=== PATIENT | female | born 1945 | race Caucasian/White ===

== ENCOUNTER 2016-09-13 05:41 | Inpatient (IN) | payer MEDICARE ==
[~2016-09-13 05:41] MED LIST: ADVAIR INH; ALIGN4 MG PO; ALLEGRA ALLERG180 MG PO; ATROVENT INHALE14 GM INH; AZITHROMYCIN250 MG PO; BENADRYL25 MG PO; CALCIUM500 MG PO; CEFDINIR300 MG PO; CERTAGEN1 EACH PO; COLACE100 MG PO; FEOSOL325 MG PO; FLONASE ALLER15.8 ML; FLORASTOR250 MG PO; FOSAMAX70 MG PO; HCTZ25 MG PO; IMITREX50 MG PO; K-DUR20 MEQ PO; LEVAQUIN750 MG PO; MUCOMYST NEB; OXY-IR 5MG5 MG PO; PREDNISONE 20MG20 MG PO; PRINIVIL10 MG PO; SINGULAIR10 MG PO; THEOPHYLLINE 3300 MG PO; VENTOLIN (2.5 MG/3 M NEB; VITAMIN D31000 UNI1 PO; XARELTO10 MG PO; ZOCOR10 MG PO; [UNRECOGNIZED DRUG - OTHER] INH; [UNRECOGNIZED DRUG - OTHER] PO; [UNRECOGNIZED DRUG - OTHER] PO
[2016-09-13 07:50] LABS: BASOPHIL 0.2 % (0-2); EOSINOPHIL 0.7 % (0-7); HGB 16.4 g/dl (12.5-16.0); LYMPHOCYTE 7.2 % (15-48); MCH 30.9 pg (25.0-31.0); MCHC 34.2 g/dL (32.0-36.0); MCV 90.4 fL (78.0-100.0); MONOCYTE 9.1 % (0-12); NEUTROPHIL 82.8 % (41-80); PLT 221 K/uL (150-400); RBC 5.31 M/uL (4.20-5.40); RDW 14.1 % (11.5-14.0); WBC 12.1 K/uL (4.0-10.5)
[2016-09-13 08:01] LABS: ALBUMIN 4.2 g/dL (3.4-4.8); BILIRUBIN - TOTAL 0.7 mg/dL (0.1-1.0); CREATININE 0.8 mg/dL (0.5-1.0); GLOBULIN (CALCULATION) 2.9 g/dL (2.2-4.2); POTASSIUM 3.3 mmol/L (3.5-5.1); TOTAL PROTEIN 7.1 g/dL (6.4-8.3)
[2016-09-13 19:21] LABS: LACTIC ACID 1.4 mmol/L (0.5-2.2)
[2016-09-13 19:22] LABS: ALBUMIN 3.7 g/dL (3.4-4.8); BILIRUBIN - TOTAL 0.7 mg/dL (0.1-1.0); CREATININE 0.7 mg/dL (0.5-1.0); GLOBULIN (CALCULATION) 2.6 g/dL (2.2-4.2); POTASSIUM 3.3 mmol/L (3.5-5.1); TOTAL PROTEIN 6.3 g/dL (6.4-8.3)
[2016-09-13 19:24] LABS: BASOPHIL 0.1 % (0-2); EOSINOPHIL 0 % (0-7); HCT 46.8 % (37.0-47.0); HGB 16.2 g/dl (12.5-16.0); LYMPHOCYTE 4.9 % (15-48); MCHC 34.6 g/dL (32.0-36.0); MCV 89.7 fL (78.0-100.0); MONOCYTE 12.1 % (0-12); MPV 9.9 fL (6.0-9.5); NEUTROPHIL 82.9 % (41-80); PLT 232 K/uL (150-400); RBC 5.22 M/uL (4.20-5.40); RDW 14.6 % (11.5-14.0)
[2016-09-13 19:25] LABS: WBC 15.2 K/uL (4.0-10.5)
[2016-09-14 05:32] LABS: BASOPHIL 0.2 % (0-2); EOSINOPHIL 0.2 % (0-7); HCT 41.3 % (37.0-47.0); HGB 14.2 g/dl (12.5-16.0); LYMPHOCYTE 11.6 % (15-48); MCH 31.1 pg (25.0-31.0); MCHC 34.4 g/dL (32.0-36.0); MCV 90.4 fL (78.0-100.0); MONOCYTE 14.5 % (0-12); MPV 9.8 fL (6.0-9.5); NEUTROPHIL 73.5 % (41-80); PLT 192 K/uL (150-400); RBC 4.57 M/uL (4.20-5.40); RDW 14.4 % (11.5-14.0); WBC 11.9 K/uL (4.0-10.5)
[2016-09-14 05:56] LABS: CREATININE 0.6 mg/dL (0.5-1.0); POTASSIUM 2.7 mmol/L (3.5-5.1)
[2016-09-15 05:20] LABS: HCT 39.3 % (37.0-47.0); HGB 13.1 g/dl (12.5-16.0); MCH 30.8 pg (25.0-31.0); MCHC 33.3 g/dL (32.0-36.0); MCV 92.3 fL (78.0-100.0); RBC 4.26 M/uL (4.20-5.40); RDW 14.4 % (11.5-14.0); WBC 6.9 K/uL (4.0-10.5)
[2016-09-15 05:43] LABS: CREATININE 0.8 mg/dL (0.5-1.0); POTASSIUM 3.6 mmol/L (3.5-5.1)
[2016-09-16 05:23] LABS: HCT 38.9 % (37.0-47.0); MCH 30.8 pg (25.0-31.0); MCHC 33.4 g/dL (32.0-36.0); MCV 92.2 fL (78.0-100.0); MPV 10.2 fL (6.0-9.5); RBC 4.22 M/uL (4.20-5.40); RDW 14.5 % (11.5-14.0); WBC 5.8 K/uL (4.0-10.5)
[2016-09-16 05:51] LABS: BILIRUBIN - TOTAL 0.2 mg/dL (0.1-1.0); CREATININE 0.6 mg/dL (0.5-1.0); GLOBULIN (CALCULATION) 2.2 g/dL (2.2-4.2); POTASSIUM 4.3 mmol/L (3.5-5.1); TOTAL PROTEIN 5.2 g/dL (6.4-8.3)
[2016-09-17 05:34] LABS: CREATININE 0.6 mg/dL (0.5-1.0); POTASSIUM 4.1 mmol/L (3.5-5.1)
== END 2016-09-17 12:06 | disposition home or self-care (01) | DRG 392 ==
LOC: FER 05:41 → FMS 23:41
PROVIDERS: Emergency Medicine Emergency Medical Services; Hospitalist; Internal Medicine; Internal Medicine Cardiovascular Disease; ADMIT Internal Medicine
DX: K52.9 Noninfective gastroenteritis and colitis, unspecified (principal); K51.00 Ulcerative (chronic) pancolitis without complications; I10 Essential (primary) hypertension; J45.909 Unspecified asthma, uncomplicated; E78.5 Hyperlipidemia, unspecified; K21.9 Gastro-esophageal reflux disease without esophagitis; M19.90 Unspecified osteoarthritis, unspecified site; Z87.19 Personal history of other diseases of the digestive system; Z88.6 Allergy status to analgesic agent; Z88.8 Allergy status to other drugs, medicaments and biological substances; Z80.3 Family history of malignant neoplasm of breast; E78.00 Pure hypercholesterolemia, unspecified; Z85.828 Personal history of other malignant neoplasm of skin; Z96.651 Presence of right artificial knee joint; E87.6 Hypokalemia; Z96.641 Presence of right artificial hip joint
CPT/HCPCS: 36415; 74000; 80048; 80053; 82150; 83605; 83735; 85025; 87040; 87045; 87046; 87205; 87328; 87337; 87493; 93005; 94010; 94640; 99284; J3370; Q9967

== ENCOUNTER 2016-10-15 22:31 | Emergency (ER) | payer MEDICARE ==
[2016-10-16 03:41] LABS: BASOPHIL 0.2 % (0-2); EOSINOPHIL 0.5 % (0-7); HCT 43.8 % (37.0-47.0); LYMPHOCYTE 12.9 % (15-48); MCH 30.7 pg (25.0-31.0); MCHC 34.2 g/dL (32.0-36.0); MCV 89.6 fL (78.0-100.0); MONOCYTE 10.2 % (0-12); MPV 9.4 fL (6.0-9.5); NEUTROPHIL 76.2 % (41-80); PLT 214 K/uL (150-400); RBC 4.89 M/uL (4.20-5.40); RDW 13.9 % (11.5-14.0)
[2016-10-16 04:02] LABS: BILIRUBIN - TOTAL 0.7 mg/dL (0.1-1.0); CREATININE 0.8 mg/dL (0.5-1.0); GLOBULIN (CALCULATION) 2.4 g/dL (2.2-4.2); POTASSIUM 2.9 mmol/L (3.5-5.1); TOTAL PROTEIN 6.4 g/dL (6.4-8.3)
== END 2016-10-16 04:25 | disposition home or self-care (01) ==
LOC: FER 22:31
PROVIDERS: Emergency Medicine
DX: A04.7 Enterocolitis due to Clostridium difficile (principal); E87.6 Hypokalemia; I10 Essential (primary) hypertension
CPT/HCPCS: 36415; 74022; 80053; 85025; 87493; 99284

== ENCOUNTER 2020-09-17 14:46 | Emergency (ER) | payer MEDICARE ==
[~2020-09-17 14:46] MED LIST changes: +ANTIVERT25 MG PO; +CARDIZEM CD180 M1 PO; +CHARCOCAPS260 MG PO; +COREG 3.125M3.125 MG PO; +COZAAR50 MG PO; +DILTIAZEM ER120 M1 PO; +DUONEB 2.5-0.5M1 AMP NEB; +FLEXERIL5 MG PO; +KAPSPARGO SPRI100 MG PO; +LEXAPRO 10MG TA10 MG PO; +LOPRESSOR50 MG PO; +MEDROL 4MG DOSEP4 MG PO; +NORVASC5 MG PO; +OXYGEN; +PHENERGAN25 M1 PO; +PREDNISONE20 MG PO; +PREDNISONE5 MG PO; +PRILOSEC20 MG PO; +PULMICORT0.5 MG/2 M NEB; +SODIUM CHLORIDE INH; +SYNTHROID25 MCG PO; +TESSALON PERLE100 MG PO; +TUSSIONEX PENN115 ML PO
[2020-09-17 16:02] LABS: ALBUMIN 3.4 g/dL (3.4-5.0); BILIRUBIN - TOTAL 0.5 mg/dL (0.2-1.0); BUN/CREAT RATIO (CALC) 15.9 RATIO; CREATININE 0.82 mg/dL (0.51-0.95); GLOBULIN (CALCULATION) 3.7 g/dL; POTASSIUM 3.6 mmol/L (3.5-5.1); TOTAL PROTEIN 7.1 g/dL (6.4-8.2)
[2020-09-17 16:09] LABS: BASOPHIL 0.8 % (0-2); HGB 14.9 g/dl (12.5-16.0); LYMPHOCYTE 18.9 % (15-48); MCH 30.7 pg (25.0-31.0); MCHC 33.1 g/dL (32.0-36.0); MCV 92.6 fL (78.0-100.0); MONOCYTE 10.1 % (0-12); MPV 10.4 fL (6.0-9.5); NEUTROPHIL 61.8 % (41-80); NRBC 0; PLT 286 K/uL (150-400); RBC 4.86 M/uL (4.20-5.40); RDW 12.8 % (11.5-14.0); WBC 9.5 K/uL (4.0-10.5)
[2020-09-17 16:11] LABS: PRO-BNP 167 pg/mL (<125)
[2020-09-17] MEDS ORDERED: PREDNISONE 20MG20 MG PO (19:00)
== END 2020-09-17 19:14 | disposition home or self-care (01) ==
LOC: FER 14:46
PROVIDERS: Emergency Medicine
DX: J45.901 Unspecified asthma with (acute) exacerbation (principal); Z88.6 Allergy status to analgesic agent; Z88.5 Allergy status to narcotic agent; Z88.8 Allergy status to other drugs, medicaments and biological substances
CPT/HCPCS: 36415; 71045; 80053; 83880; 84484; 85025; 93005; 94664; J2930

== ENCOUNTER 2020-10-05 12:44 | Emergency (ER) | payer MEDICARE ==
[2020-10-05 13:44] LABS: BASOPHIL 0.4 % (0-2); EOSINOPHIL 3.6 % (0-7); HCT 47.8 % (37.0-47.0); LYMPHOCYTE 15.1 % (15-48); MCH 30.8 pg (25.0-31.0); MCHC 33.5 g/dL (32.0-36.0); MCV 91.9 fL (78.0-100.0); MONOCYTE 10.3 % (0-12); MPV 10.1 fL (6.0-9.5); NEUTROPHIL 70.1 % (41-80); NRBC 0; PLT 210 K/uL (150-400); RDW 13.6 % (11.5-14.0); WBC 11.3 K/uL (4.0-10.5)
[2020-10-05 13:54] LABS: INR 0.94 (0.9-1.2); PROTHROMBIN TIME 11.9 SECONDS (11.4-13.6); PTT 28.4 SECONDS (22.2-34.7)
[2020-10-05 14:04] LABS: ALBUMIN 3.4 g/dL (3.4-5.0); BILIRUBIN - TOTAL 0.6 mg/dL (0.2-1.0); BUN/CREAT RATIO (CALC) 18.8 RATIO; CREATININE 0.8 mg/dL (0.51-0.95); GLOBULIN (CALCULATION) 3.2 g/dL; MAGNESIUM 1.9 mg/dL (1.8-2.4); POTASSIUM 3.8 mmol/L (3.5-5.1); TOTAL PROTEIN 6.6 g/dL (6.4-8.2)
[2020-10-05 14:26] LABS: LACTIC ACID 2.6 mmol/L (0.4-1.9)
[2020-10-05] MEDS ORDERED: PREDNISONE20 MG PO (18:24)
== END 2020-10-05 19:05 | disposition home or self-care (01) ==
LOC: FER 12:44
PROVIDERS: Emergency Medicine
DX: J45.901 Unspecified asthma with (acute) exacerbation (principal); I10 Essential (primary) hypertension; Z20.822 Contact with and (suspected) exposure to COVID-19; Z88.1 Allergy status to other antibiotic agents; Z88.6 Allergy status to analgesic agent; Z88.5 Allergy status to narcotic agent; Z88.8 Allergy status to other drugs, medicaments and biological substances
CPT/HCPCS: 36415; 36600; 71045; 80053; 82803; 83605; 83735; 83880; 84145; 85025; 85610; 85730; 87040; 93005; 94640; 94664; J2930; U0002

== ENCOUNTER 2020-10-07 12:22 | Day surgery (SDCO) | payer MEDICARE ==
[~2020-10-07] VITALS: Ht 154.9 cm; Wt 87.3 kg
[2020-10-07 13:36] LABS: BASOPHIL 0.2 % (0-2); EOSINOPHIL 0 % (0-7); HGB 15.9 g/dl (12.5-16.0); LYMPHOCYTE 6.9 % (15-48); MCH 30.7 pg (25.0-31.0); MCHC 33.1 g/dL (32.0-36.0); MCV 92.7 fL (78.0-100.0); MONOCYTE 3.6 % (0-12); MPV 10.2 fL (6.0-9.5); NEUTROPHIL 88.6 % (41-80); NRBC 0; PLT 221 K/uL (150-400); RBC 5.18 M/uL (4.20-5.40); RDW 13.8 % (11.5-14.0)
[2020-10-07 13:55] LABS: ALBUMIN 3.4 g/dL (3.4-5.0); BILIRUBIN - TOTAL 0.4 mg/dL (0.2-1.0); BUN/CREAT RATIO (CALC) 25.6 RATIO; CREATININE 0.78 mg/dL (0.51-0.95); GLOBULIN (CALCULATION) 3.7 g/dL; POTASSIUM 4.2 mmol/L (3.5-5.1); TOTAL PROTEIN 7.1 g/dL (6.4-8.2)
[2020-10-07] MEDS ORDERED: SYMBICORT 80-10.2 GM INH (17:10)
[2020-10-07] MEDS ORDERED: PREDNISONE 20MG20 MG PO (17:19)
[2020-10-07] MEDS ORDERED: LEVOTHYROXINE75 MC1 PO (17:21)
[2020-10-07] MEDS ORDERED: COZAAR100 MG PO (17:21)
[2020-10-08 04:12] LABS: BASOPHIL 0.1 % (0-2); EOSINOPHIL 0 % (0-7); HCT 43.9 % (37.0-47.0); HGB 14.8 g/dl (12.5-16.0); LYMPHOCYTE 7.3 % (15-48); MCH 31.1 pg (25.0-31.0); MCHC 33.7 g/dL (32.0-36.0); MCV 92.2 fL (78.0-100.0); MONOCYTE 2.1 % (0-12); NEUTROPHIL 89.8 % (41-80); NRBC 0; PLT 187 K/uL (150-400); RBC 4.76 M/uL (4.20-5.40); RDW 13.7 % (11.5-14.0); WBC 10.4 K/uL (4.0-10.5)
[2020-10-08 04:38] LABS: BUN/CREAT RATIO (CALC) 27.3 RATIO; CREATININE 0.77 mg/dL (0.51-0.95); POTASSIUM 3.6 mmol/L (3.5-5.1)
--- NOTE | 2020-10-08 09:46 | NUR ---
10/08/20 Please consider discharge or full admit. Thank you.
[2020-10-09 08:08] LABS: IMMUNOGLOBULIN A, QN, SERUM 146 mg/dL (64-422); IMMUNOGLOBULIN G, QN, SERUM 454 mg/dL (586-1602); IMMUNOGLOBULIN M, QN, SERUM 64 mg/dL (26-217)
[2020-10-10 05:47] LABS: BASOPHIL 0.3 % (0-2); EOSINOPHIL 0.1 % (0-7); HCT 44.5 % (37.0-47.0); HGB 14.8 g/dl (12.5-16.0); LYMPHOCYTE 19.4 % (15-48); MCH 30.7 pg (25.0-31.0); MCHC 33.3 g/dL (32.0-36.0); MCV 92.3 fL (78.0-100.0); MONOCYTE 10.4 % (0-12); NEUTROPHIL 68.8 % (41-80); NRBC 0; PLT 175 K/uL (150-400); RBC 4.82 M/uL (4.20-5.40); RDW 14.2 % (11.5-14.0); WBC 11.9 K/uL (4.0-10.5)
[2020-10-10 05:57] LABS: CREATININE 0.87 mg/dL (0.51-0.95); POTASSIUM 3.7 mmol/L (3.5-5.1)
[2020-10-10] MEDS ORDERED: PREDNISONE 20MG20 MG PO (09:59)
--- NOTE | 2020-10-10 10:00 | NUR ---
10/10/20 Ms. Faustin and her spouse share a home together. She has a C-PAP, S. chair, rollator and rw. Ms. Faustin is able to manage the household with the assitance of her spouse and a senior sales consultant every 2 weeks. No discharge planning needs are anticipated.
[2020-10-13 05:10] LABS: D001-IGE D PTERONYSSINUS <0.10 kU/L (Class 0); D002-IGE D FARINAE <0.10 kU/L (Class 0); E001-IGE CAT DANDER <0.10 kU/L (Class 0); E005-IGE DOG DANDER <0.10 kU/L (Class 0); E072-IGE MOUSE URINE <0.10 kU/L (Class 0); G002-IGE BERMUDA GRASS <0.10 kU/L (Class 0); G006-IGE TIMOTHY GRASS <0.10 kU/L (Class 0); IMMUNOGLOBULIN E, TOTAL 77 IU/mL (6-495); M001-IGE PENICILLIUM CHRYSOGEN <0.10 kU/L (Class 0); M002-IGE CLADOSPORIUM HERBARUM <0.10 kU/L (Class 0); M003-IGE ASPERGILLUS FUMIGATUS 0.18 kU/L (Class 0/I); M006-IGE ALTERNARIA ALTERNATA <0.10 kU/L (Class 0); T001-IGE MAPLE/BOX ELDER <0.10 kU/L (Class 0); T003-IGE COMMON SILVER BIRCH <0.10 kU/L (Class 0); T006-IGE CEDAR, MOUNTAIN <0.10 kU/L (Class 0); T007-IGE OAK, WHITE <0.10 kU/L (Class 0); T010-IGE WALNUT <0.10 kU/L (Class 0); T011-IGE MAPLE LEAF SYCAMORE <0.10 kU/L (Class 0); T014-IGE COTTONWOOD <0.10 kU/L (Class 0); T015-IGE ASH, WHITE <0.10 kU/L (Class 0); T070-IGE WHITE MULBERRY <0.10 kU/L (Class 0); W001-IGE RAGWEED, SHORT <0.10 kU/L (Class 0); W018-IGE SHEEP SORREL <0.10 kU/L (Class 0)
== END 2020-10-10 10:30 | disposition home or self-care (01) ==
LOC: FER 12:22 → FMS 14:54
PROVIDERS: Emergency Medicine; ADMIT Allergy & Immunology Allergy
DX: J45.51 Severe persistent asthma with (acute) exacerbation (principal); I10 Essential (primary) hypertension; E78.5 Hyperlipidemia, unspecified; G43.909 Migraine, unspecified, not intractable, without status migrainosus; E03.9 Hypothyroidism, unspecified; M81.0 Age-related osteoporosis without current pathological fracture; I70.0 Atherosclerosis of aorta; K21.9 Gastro-esophageal reflux disease without esophagitis; J98.11 Atelectasis; D80.1 Nonfamilial hypogammaglobulinemia; Z79.899 Other long term (current) drug therapy; Z88.5 Allergy status to narcotic agent; Z88.6 Allergy status to analgesic agent; Z88.8 Allergy status to other drugs, medicaments and biological substances; Z20.822 Contact with and (suspected) exposure to COVID-19
CPT/HCPCS: 36415; 36600; 71046; 71250; 80048; 80053; 82784; 82803; 83605; 83880; 84484; 85025; 86001; 93005; 94010; 94640; 94664; 94667; 94668; 94760; A4216; G0378; J1650; J2920; J3475; J7050; J7120; J7512; U0002

== ENCOUNTER 2020-11-04 20:01 | Emergency (ER) | payer MEDICARE ==
[~2020-11-04 20:01] MED LIST changes: +COZAAR100 MG PO; +LEVOTHYROXINE75 MC1 PO; +SYMBICORT 80-10.2 GM INH
[2020-11-04 20:59] LABS: BASOPHIL 0.6 % (0-2); EOSINOPHIL 2.1 % (0-7); HCT 43.5 % (37.0-47.0); HGB 14.5 g/dl (12.5-16.0); LYMPHOCYTE 25.7 % (15-48); MCHC 33.3 g/dL (32.0-36.0); MCV 93.1 fL (78.0-100.0); MONOCYTE 10.3 % (0-12); MPV 9.9 fL (6.0-9.5); NEUTROPHIL 60.5 % (41-80); NRBC 0; PLT 235 K/uL (150-400); RBC 4.67 M/uL (4.20-5.40); RDW 14.6 % (11.5-14.0); WBC 9.5 K/uL (4.0-10.5)
[2020-11-04 21:07] LABS: BUN/CREAT RATIO (CALC) 22.5 RATIO; CREATININE 0.8 mg/dL (0.51-0.95); POTASSIUM 3.7 mmol/L (3.5-5.1)
[2020-11-04] MEDS ORDERED: PREDNISONE 20MG20 MG PO (21:56)
== END 2020-11-04 22:05 | disposition home or self-care (01) ==
LOC: FER 20:01
PROVIDERS: Emergency Medicine
DX: J45.909 Unspecified asthma, uncomplicated (principal); I10 Essential (primary) hypertension; Z88.6 Allergy status to analgesic agent; Z88.5 Allergy status to narcotic agent; Z88.8 Allergy status to other drugs, medicaments and biological substances; Z79.899 Other long term (current) drug therapy
CPT/HCPCS: 36415; 71045; 80048; 85025; 93005; 94640; 94664; 94760; J2930

== ENCOUNTER 2020-12-13 13:24 | Emergency (ER) | payer MEDICARE ==
[2020-12-13] MEDS ORDERED: PREDNISONE 20MG20 MG PO (16:23)
== END 2020-12-13 17:19 | disposition home or self-care (01) ==
LOC: FER 13:24
DX: J45.901 Unspecified asthma with (acute) exacerbation (principal); J98.11 Atelectasis; I10 Essential (primary) hypertension
CPT/HCPCS: 71045

== ENCOUNTER 2021-04-09 07:33 | Inpatient (IN) | payer MEDICARE ==
[~2021-04-09] VITALS: Ht 154.9 cm; Wt 90.8 kg
[2021-04-09 08:13] LABS: BASOPHIL 0.6 % (0-2); EOSINOPHIL 0.8 % (0-7); HCT 48.8 % (37.0-47.0); LYMPHOCYTE 13.5 % (15-48); MCH 30.7 pg (25.0-31.0); MCHC 32.8 g/dL (32.0-36.0); MCV 93.5 fL (78.0-100.0); MPV 9.9 fL (6.0-9.5); NEUTROPHIL 71.4 % (41-80); NRBC 0; PLT 267 K/uL (150-400); RBC 5.22 M/uL (4.20-5.40); RDW 13.4 % (11.5-14.0)
[2021-04-09 08:27] LABS: CORONAVIRUS 2019 SARS-COV-2 NEGATIVE (NEGATIVE); INFLUENZA A NAA NEGATIVE (NEGATIVE)
[2021-04-09 08:34] LABS: ALBUMIN 3.5 g/dL (3.4-5.0); BILIRUBIN - TOTAL 0.8 mg/dL (0.2-1.0); BUN/CREAT RATIO (CALC) 22.1 RATIO; CREATININE 0.86 mg/dL (0.51-0.95); GLOBULIN (CALCULATION) 3.4 g/dL; POTASSIUM 3.3 mmol/L (3.5-5.1); TOTAL PROTEIN 6.9 g/dL (6.4-8.2)
[2021-04-09 08:38] LABS: PRO-BNP 114 pg/mL (<450)
[2021-04-09 08:43] LABS: C-REACTIVE PROTEIN 6.6 mg/dL (<=0.90)
[2021-04-09] MEDS ORDERED: SYMBICORT 80-10.2 GM INH (11:35)
[2021-04-09] MEDS ORDERED: TESSALON PERLE100 MG PO ×2 (13:08→13:09)
[2021-04-09] MEDS ORDERED: VITAMIN D325 MC2 PO (13:11)
[2021-04-09] MEDS ORDERED: DUPIXENT P200 MG/1.1 IJ (13:13)
[2021-04-09] MEDS ORDERED: LASIX20 MG PO (13:14)
[2021-04-09] MEDS ORDERED: IMODIUM2 MG PO (13:17)
[2021-04-09] MEDS ORDERED: ANTIVERT25 MG PO ×2 (13:19)
[2021-04-09] MEDS ORDERED: mycostatin TOP (13:22)
[2021-04-09] MEDS ORDERED: PRILOSEC20 MG PO (13:23)
[2021-04-09] MEDS ORDERED: SPIRIVA18 MCG INH (13:24)
[2021-04-11 06:13] LABS: BASOPHIL 0.3 % (0-2); EOSINOPHIL 0.1 % (0-7); HCT 44.2 % (37.0-47.0); HGB 14.6 g/dl (12.5-16.0); LYMPHOCYTE 19.7 % (15-48); MCH 30.5 pg (25.0-31.0); MCV 92.5 fL (78.0-100.0); MPV 9.9 fL (6.0-9.5); NEUTROPHIL 68.6 % (41-80); NRBC 0; PLT 294 K/uL (150-400); RBC 4.78 M/uL (4.20-5.40); RDW 13.3 % (11.5-14.0); WBC 14.8 K/uL (4.0-10.5)
[2021-04-11 06:49] LABS: BUN/CREAT RATIO (CALC) 20.8 RATIO; CREATININE 0.72 mg/dL (0.51-0.95); POTASSIUM 3.7 mmol/L (3.5-5.1)
--- NOTE | 2021-04-11 15:57 | NUR ---
04/11/21 Ms. Faustin lives at home with her spouse. She has a rollator and s. chair. She is modified independent in the home and community. A fish housekeeper comes to the home evry other week. - Ms. Faustin chose [facility] if 02 is needed at discharge. However, she prefers not to have 02 and request her permission prior to a referral being made to [facility]. A report was given to Dr. Martin.
[2021-04-12 06:45] LABS: BASOPHIL 0.5 % (0-2); EOSINOPHIL 0.1 % (0-7); HCT 43.9 % (37.0-47.0); HGB 14.4 g/dl (12.5-16.0); LYMPHOCYTE 23.2 % (15-48); MCH 30.4 pg (25.0-31.0); MCHC 32.8 g/dL (32.0-36.0); MCV 92.8 fL (78.0-100.0); MONOCYTE 10.1 % (0-12); MPV 9.8 fL (6.0-9.5); NEUTROPHIL 63.7 % (41-80); NRBC 0; PLT 294 K/uL (150-400); RBC 4.73 M/uL (4.20-5.40); RDW 13.3 % (11.5-14.0); WBC 12.4 K/uL (4.0-10.5)
[2021-04-12 07:01] LABS: ALBUMIN 2.6 g/dL (3.4-5.0); BILIRUBIN - TOTAL 0.3 mg/dL (0.2-1.0); BUN/CREAT RATIO (CALC) 23.9 RATIO; CREATININE 0.71 mg/dL (0.51-0.95); GLOBULIN (CALCULATION) 3.9 g/dL; POTASSIUM 3.6 mmol/L (3.5-5.1); TOTAL PROTEIN 6.5 g/dL (6.4-8.2)
[2021-04-13 06:24] LABS: BASOPHIL 0.5 % (0-2); EOSINOPHIL 0.2 % (0-7); HCT 43.5 % (37.0-47.0); MCH 29.9 pg (25.0-31.0); MCHC 32.2 g/dL (32.0-36.0); MCV 92.9 fL (78.0-100.0); MONOCYTE 9.8 % (0-12); MPV 9.7 fL (6.0-9.5); NEUTROPHIL 62.8 % (41-80); NRBC 0; PLT 266 K/uL (150-400); RBC 4.68 M/uL (4.20-5.40); RDW 13.3 % (11.5-14.0); WBC 11.6 K/uL (4.0-10.5)
[2021-04-13 07:07] LABS: ALBUMIN 2.6 g/dL (3.4-5.0); BILIRUBIN - TOTAL 0.2 mg/dL (0.2-1.0); CREATININE 0.84 mg/dL (0.51-0.95); GLOBULIN (CALCULATION) 3.4 g/dL; POTASSIUM 3.9 mmol/L (3.5-5.1)
[2021-04-14] MEDS ORDERED: ADVAIR 500-501 EACH INH (13:28)
[2021-04-15] MEDS ORDERED: BENTYL10 MG PO (05:24)
[2021-04-15] MEDS ORDERED: METRONIDAZOLE500 MG PO (05:24)
== END 2021-04-13 12:05 | disposition home or self-care (01) | DRG 871 ==
LOC: FER 07:33 → FMS 09:46
PROVIDERS: Emergency Medicine; Family Medicine; ADMIT Allergy & Immunology Allergy
PROC: 8E0ZXY6 Isolation (ICD-10-PCS; principal; 2021-04-12)
DX: A41.9 Sepsis, unspecified organism (principal); J96.01 Acute respiratory failure with hypoxia; J18.9 Pneumonia, unspecified organism; E87.2 Acidosis; J47.0 Bronchiectasis with acute lower respiratory infection; J45.51 Severe persistent asthma with (acute) exacerbation; R65.20 Severe sepsis without septic shock; Z20.822 Contact with and (suspected) exposure to COVID-19; E03.9 Hypothyroidism, unspecified; K52.9 Noninfective gastroenteritis and colitis, unspecified; I50.9 Heart failure, unspecified; I11.0 Hypertensive heart disease with heart failure; M81.0 Age-related osteoporosis without current pathological fracture; K21.9 Gastro-esophageal reflux disease without esophagitis; G43.909 Migraine, unspecified, not intractable, without status migrainosus; E78.5 Hyperlipidemia, unspecified; I87.2 Venous insufficiency (chronic) (peripheral); E66.9 Obesity, unspecified; Z96.651 Presence of right artificial knee joint; Z96.641 Presence of right artificial hip joint; Z98.41 Cataract extraction status, right eye; Z98.42 Cataract extraction status, left eye; Z98.890 Other specified postprocedural states; Z88.5 Allergy status to narcotic agent; Z88.6 Allergy status to analgesic agent; Z88.8 Allergy status to other drugs, medicaments and biological substances; Z79.51 Long term (current) use of inhaled steroids; Z79.890 Hormone replacement therapy; Z79.899 Other long term (current) drug therapy; Z87.01 Personal history of pneumonia (recurrent); Z68.37 Body mass index [BMI] 37.0-37.9, adult
CPT/HCPCS: 36415; 36600; 71045; 71275; 80048; 80053; 82728; 82803; 83605; 83615; 83735; 83880; 84145; 84484; 85025; 85379; 86140; 87040; 87449; 93005; 94640; 94668; 94760; A4216; J0456; J0696; J1650; J2543; J2930; J7030; J7050; J7512; Q9967; U0002

== ENCOUNTER 2021-08-15 16:08 | Emergency (ER) | payer MEDICARE ==
[~2021-08-15 16:08] MED LIST changes: +ADVAIR 500-501 EACH INH; +BENTYL10 MG PO; +DUPIXENT P200 MG/1.1 IJ; +IMODIUM2 MG PO; +LASIX20 MG PO; +METRONIDAZOLE500 MG PO; +SPIRIVA18 MCG INH; +VITAMIN D325 MC2 PO; +mycostatin TOP
[2021-08-15 17:51] LABS: BILIRUBIN NEGATIVE (NEGATIVE); BLOOD NEGATIVE Ery/uL (NEGATIVE); CLARITY CLEAR (CLEAR); GLUCOSE (U) NORMAL (NORMAL); LEUKOCYTES TRACE Leu/uL (NEGATIVE); NITRITE NEGATIVE (NEGATIVE); PROTEIN NEGATIVE (NEGATIVE); SPECIFIC GRAVITY 1.015 (1.001-1.030); UROBILINOGEN 0.2 mg/dL (0.2-1.0)
[2021-08-15 17:56] LABS: COLOR STRAW (YELLOW)
[2021-08-15 17:57] LABS: URINARY WBC RARE
[2021-08-15 17:58] LABS: BACTERIA TRACE; SQUAMOUS EPITHELIAL CELLS RARE
[2021-08-15] MEDS ORDERED: PREDNISONE 20MG20 MG PO (19:07)
== END 2021-08-15 20:22 | disposition home or self-care (01) ==
LOC: FER 16:08
PROVIDERS: Emergency Medicine
DX: M54.50 Low back pain, unspecified (principal); G89.29 Other chronic pain; I10 Essential (primary) hypertension; E66.9 Obesity, unspecified; Z88.6 Allergy status to analgesic agent; Z88.8 Allergy status to other drugs, medicaments and biological substances; Z91.048 Other nonmedicinal substance allergy status
CPT/HCPCS: 81001; 96372; J1170; J2550; J7512

== ENCOUNTER 2021-10-08 00:51 | Emergency (ER) | payer MEDICARE ==
[2021-10-08 03:42] LABS: BASOPHIL 0.7 % (0-2); EOSINOPHIL 0.7 % (0-7); HCT 48.7 % (37.0-47.0); HGB 15.9 g/dl (12.5-16.0); LYMPHOCYTE 14.9 % (15-48); MCH 31.1 pg (25.0-31.0); MCHC 32.6 g/dL (32.0-36.0); MCV 95.3 fL (78.0-100.0); MPV 9.9 fL (6.0-9.5); NEUTROPHIL 77.4 % (41-80); NRBC 0; PLT 213 K/uL (150-400); RBC 5.11 M/uL (4.20-5.40); RDW 13.8 % (11.5-14.0); WBC 8.8 K/uL (4.0-10.5)
[2021-10-08 04:02] LABS: ALBUMIN 3.6 g/dL (3.4-5.0); BILIRUBIN - TOTAL 0.5 mg/dL (0.2-1.0); BUN/CREAT RATIO (CALC) 23.2 RATIO; CREATININE 0.69 mg/dL (0.51-0.95); GLOBULIN (CALCULATION) 3.4 g/dL; POTASSIUM 3.7 mmol/L (3.5-5.1)
[2021-10-08] MEDS ORDERED: ZPAK PO (04:57)
[2021-10-08] MEDS ORDERED: MEDROL 4MG DOSEP4 MG PO (04:57)
== END 2021-10-08 05:52 | disposition home or self-care (01) ==
LOC: FER 00:51
PROVIDERS: Emergency Medicine
DX: J45.901 Unspecified asthma with (acute) exacerbation (principal); J18.9 Pneumonia, unspecified organism; I10 Essential (primary) hypertension; Z88.5 Allergy status to narcotic agent; Z88.6 Allergy status to analgesic agent; Z88.8 Allergy status to other drugs, medicaments and biological substances; Z20.822 Contact with and (suspected) exposure to COVID-19
CPT/HCPCS: 36415; 71045; 80053; 84484; 85025; 93005; 94640; J2930; U0002

== ENCOUNTER 2021-11-13 12:24 | Emergency (ER) | payer MEDICARE ==
[~2021-11-13 12:24] MED LIST changes: +ZPAK PO
[2021-11-13 14:01] LABS: BASOPHIL 1.2 % (0-2); EOSINOPHIL 0.9 % (0-7); HCT 47.1 % (37.0-47.0); HGB 15.6 g/dl (12.5-16.0); LYMPHOCYTE 19.9 % (15-48); MCH 31.6 pg (25.0-31.0); MCHC 33.1 g/dL (32.0-36.0); MCV 95.3 fL (78.0-100.0); MONOCYTE 9.8 % (0-12); MPV 9.5 fL (6.0-9.5); NEUTROPHIL 67.3 % (41-80); NRBC 0; PLT 333 K/uL (150-400); RBC 4.94 M/uL (4.20-5.40); RDW 13.4 % (11.5-14.0); WBC 10.2 K/uL (4.0-10.5)
[2021-11-13 14:02] LABS: BILIRUBIN NEGATIVE (NEGATIVE); BLOOD NEGATIVE Ery/uL (NEGATIVE); CLARITY CLEAR (CLEAR); COLOR YELLOW (YELLOW); GLUCOSE (U) NORMAL (NORMAL); LEUKOCYTES TRACE Leu/uL (NEGATIVE); NITRITE NEGATIVE (NEGATIVE); PROTEIN NEGATIVE (NEGATIVE); UROBILINOGEN 0.2 mg/dL (0.2-1.0)
[2021-11-13 14:08] LABS: INR 0.99 (0.9-1.2); PROTHROMBIN TIME 12.8 SECONDS (11.9-13.9)
[2021-11-13 14:10] LABS: D-DIMER 0.59 ug/mLFEU (0.00-0.41)
[2021-11-13 14:16] LABS: SQUAMOUS EPITHELIAL CELLS RARE; URINARY WBC RARE
[2021-11-13 14:28] LABS: ALBUMIN 3.5 g/dL (3.4-5.0); BILIRUBIN - TOTAL 0.6 mg/dL (0.2-1.0); BUN/CREAT RATIO (CALC) 20.5 RATIO; CREATININE 0.83 mg/dL (0.51-0.95); GLOBULIN (CALCULATION) 3.4 g/dL; POTASSIUM 3.5 mmol/L (3.5-5.1); TOTAL PROTEIN 6.9 g/dL (6.4-8.2)
[2021-11-13 14:45] LABS: CORONAVIRUS 2019 SARS-COV-2 NEGATIVE (NEGATIVE); INFLUENZA A NAA NEGATIVE (NEGATIVE)
[2021-11-13] MEDS ORDERED: ZPAK PO (15:25)
[2021-11-13] MEDS ORDERED: PREDNISONE 20MG20 MG PO (15:25)
== END 2021-11-13 15:35 | disposition home or self-care (01) ==
LOC: FER 12:24
PROVIDERS: Emergency Medicine; Nurse Practitioner Family
DX: J18.9 Pneumonia, unspecified organism (principal); Z20.822 Contact with and (suspected) exposure to COVID-19; Z88.5 Allergy status to narcotic agent; Z88.6 Allergy status to analgesic agent; Z88.8 Allergy status to other drugs, medicaments and biological substances; Z91.09 Other allergy status, other than to drugs and biological substances
CPT/HCPCS: 36415; 71045; 80053; 81001; 83880; 84484; 85025; 85379; 85610; 85730; U0002